=== PATIENT | male | born 1995 | race Caucasian/White ===

== ENCOUNTER 2019-12-01 14:44 | Emergency (ER) | payer MEDICAID, SELFPAY ==
--- NOTE | ~2019-12-01 | XR_ITS ---
EXAMINATION: XR ankle LT min 3V DATE: 12/01/2019 14:56 INDICATION: Left ankle pain TECHNIQUE: Anteroposterior, lateral, mortise, and additional oblique view of the ankle were obtained. COMPARISON: None. FINDINGS: There is no fracture, dislocation, or subluxation. The bones, soft tissues, and joint space s are normal. IMPRESSION: 1. No acute osseous abnormality. Reviewed, dictated and finalized at location A.
[2019-12-01 14:46] VITALS: RESP 16
[2019-12-01 14:57] VITALS: BP 127/86; PULSE 89; RESP 18; O2SAT 98
--- NOTE | 2019-12-01 16:04 | ED.LOWEXIN ---
HPI - Extremity Injury (Lower) General Chief Complaint: Extremity Injury, Lower Stated Complaint: left ankle injury Time Seen by Provider: 12/01/19 15:43 Source: patient Mode of arrival: ambulatory Limitations: no limitations History of Present Illness HPI Narrative: This is a 24 year old male that presents to the ER for left ankle injury today. 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 Reports since he has had pain on the lateral side of the ankle. Pain is worse with weightbearing and relieved with rest. Denies decreased range of motion or numbness. Related Data Home Medications Medication Instructions Recorded Confirmed No Home Medications 12/01/19 12/01/19 Allergies Allergy/AdvReac Type Severity Reaction Status Date / Time No Known Allergies Allergy Verified 12/01/19 14:45 Review of Systems Review of Systems: Narrative: CONSTITUTIONAL: Denies fever MUSCULOSKELETAL: Reports joint pain, and myalgia. NEUROLOGIC: Denies numbness All systems reviewed & are unremarkable except as noted in HPI and below PMFSH Past Medical History Medical History (Updated 12/01/19 @ 16:08 by Josee Guzman PA-C) No active medical problems Social History Social History (Updated 12/01/19 @ 16:06 by Josee Guzman PA-C) Substance use: never Gender identity (if verbalized by the patient): Male Exam Narrative: Exam Narrative: GENERAL: Well-appearing, well-nourished, and in no acute distress. HEAD: Normocephalic, atraumatic. EYES: EOMI. EXTREMITIES: Normal range of motion. No edema or obvious deformity. Normal DP pulses. Normal sensation SKIN: Warm, dry, no rash. NEURO: No focal deficits. Alert and oriented x3. PSYCH: Normal mood and affect Course Vital Signs Vital signs: Vital Signs Respiratory Rate 16 12/01/19 14:46 Pulse Rate 89 12/01/19 14:57 Respiratory Rate 18 12/01/19 14:57 Blood Pressure 127/86 12/01/19 14:57 Pulse Oximetry 98 12/01/19 14:57 MDM - Extremity Injury (Lower) MDM Narrative Medical decision making narrative: Patient presents emergency department for left ankle pain after an injury today. Left ankle x-rays without acute findings. Patient instructed on care of ankle sprain. He is to follow-up with primary care doctor. He was given warnings to return to the ER Imaging Data Radiologist's impression: ITS Impressions Ankle X-Ray 12/01/19 15:13 IMPRESSION: 1. No acute osseous abnormality. Critical Care Time Critical Care Time Critical Care Time: No Discharge Plan Discharge Clinical Impression: Ankle sprain and strain Patient Disposition: Home, Self-Care Condition: Stable Instructions: Ankle Sprain (ED) Additional Instructions: Return to the emergency department if you experience fever, redness and swelling of your leg, or any other symptoms that are concerning to you Wear MARISELA wrap and use crutches. No weight on the affected leg until able to bear weight without pain. Ice and elevate extremity. Tylenol or ibuprofen as needed for pain Follow up with primary care doctor for further care. Prescriptions: No Action No Home Medications RF: 0 Follow-up/Referrals: Brandon Cordova MD [Physician] - 1 Week PHYSICIAN,CHUTE TAPPER [Primary Care Provider] - Stand Alone Forms: Work/School Release IP
[2019-12-01 16:28] VITALS: PULSE 86; RESP 17; O2SAT 98
== END 2019-12-01 16:28 | disposition home or self-care (01) ==
PROVIDERS: Emergency Provider Emergency Medicine
DX: S93.402A Sprain of unspecified ligament of left ankle, initial encounter (principal); X50.0XXA Overexertion from strenuous movement or load, initial encounter
CPT/HCPCS: 73610; 99283

== ENCOUNTER 2020-03-08 12:59 | Emergency (ER) | payer OTHER, SELFPAY ==
--- NOTE | 2020-03-08 13:03 | ED.GENADULT ---
HPI - General Adult General Chief complaint: Upper Respiratory Infection Stated complaint: cold sx Time Seen by Provider: 03/08/20 13:20 Source: patient Mode of arrival: ambulatory Limitations: no limitations History of Present Illness HPI narrative: 25-year-old male patient presents to the [facility] with complaints of cold symptoms that started 2 days ago. Patient states that he is actually from [place] and moved up here about 6 months ago. Patient states he has never had issues with allergies before until he moved up here. Patient states he has had a lot of nasal congestion, runny nose and a cough. Denies any fevers, body aches or chills. Denies any ear pain or sore throat. Denies any chest pain or shortness of breath. Denies any abdominal pain, nausea, vomiting or diarrhea. Patient states he has taken Tylenol couple of times for his symptoms but denies any other medications for his symptoms. Patient states he is an active cigarette smoker. Related Data Allergies Allergy/AdvReac Type Severity Reaction Status Date / Time No Known Allergies Allergy Verified 03/08/20 13:26 Review of Systems Review of Systems: Narrative: CONSTITUTIONAL: Denies fever, chills, or sweats. EYES: Denies visual changes, redness, or discharge. ENT: Positive rhinorrhea, congestion, denies sore throat, or otalgia. CARDIOVASCULAR: Denies chest pain, palpitations, or edema. RESPIRATORY: Positive cough, denies dyspnea. GASTROINTESTINAL: Denies abdominal pain, nausea, vomiting, or diarrhea. GENITOURINARY: Denies dysuria or hematuria. SKIN: Denies rash or itching. MUSCULOSKELETAL: Denies back pain, joint pain, or myalgia. NEUROLOGIC: Denies headache, numbness, or weakness. PSYCHIATRIC: Denies anxiety or depression. [facility] Past Medical History Medical History No active medical problems Social History Social History (Updated 03/08/20 @ 13:30 by GUANAKITO Douglas) Smoking status: Current every day smoker Substance use: never Gender identity (if verbalized by the patient): Male Comments At the time of my signature I agree with nursing past medical history, surgical, social, and family history. There is no relevant family history pertinent to the presenting complaint. Exam Narrative: Exam Narrative: GENERAL: Well-appearing, well-nourished, and in no acute distress. HEAD: Normocephalic, atraumatic. EYES: PERRLA and EOMI. ENT: Nares with erythema and edema noted bilaterally, no rhinorrhea or epistaxis. Mucous membranes moist. Posterior pharynx with no erythema, tonsillectomy, exudates or lesions present. Bilateral TMs are clear with no erythema or foreign bodies to the canal. NECK: Supple. No lymphadenopathy CHEST: Clear to auscultation. No respiratory distress. Patient able talk clear complete sentences. HEART: Regular rate and rhythm. No murmur heard. Normal peripheral pulses. ABDOMEN: Soft, nontender, nondistended, normal active bowel sounds. EXTREMITIES: Normal range of motion. No edema. SKIN: Warm, dry, no rash. NEURO: No focal deficits. Alert and oriented x3. Course Vital Signs Vital signs: Vital Signs Temperature 37.1 C 03/08/20 13:15 Pulse Rate 78 03/08/20 13:15 Respiratory Rate 16 03/08/20 13:15 Blood Pressure 128/56 L 03/08/20 13:15 Pulse Oximetry 99 03/08/20 13:15 Temperature 37.1 C 03/08/20 13:15 Pulse Rate 78 03/08/20 13:15 Respiratory Rate 16 03/08/20 13:15 Blood Pressure 128/56 L 03/08/20 13:15 Pulse Oximetry 99 03/08/20 13:15 Vital signs reviewed. Medical Decision Making Differential Diagnosis Differential Diagnosis: Differential diagnosis: Allergic rhinitis, chronic sinusitis, tonsillitis, acute sinusitis, infectious mononucleosis, seasonal influenza, pertussis, diphtheria, meningococcal disease, viral syndrome, viral bronchitis, RSV. Discussed with patient that I think his symptoms are most likely due to allergies and drain
[2020-03-08 13:15] VITALS: BP 128/56; PULSE 78; RESP 16; TEMP 37.1; O2SAT 99
== END 2020-03-08 13:36 | disposition home or self-care (01) ==
PROVIDERS: Emergency Provider Nurse Practitioner Family
DX: J00 Acute nasopharyngitis [common cold] (principal); J01.90 Acute sinusitis, unspecified; R05 Cough; J30.9 Allergic rhinitis, unspecified; F17.210 Nicotine dependence, cigarettes, uncomplicated
CPT/HCPCS: 99213; G0463

== ENCOUNTER 2020-07-04 08:10 | Emergency (ER) | payer OTHER, SELFPAY ==
--- NOTE | 2020-07-04 08:11 | ED.GENADULT ---
HPI - General Adult General Chief complaint: Upper Respiratory Infection Stated complaint: Runny Nose/Sore throat Time Seen by Provider: 07/04/20 08:11 Source: patient Mode of arrival: ambulatory Limitations: no limitations History of Present Illness HPI narrative: 25-year-old male patient presents to the [facility] with complaints of cold symptoms for the past 5 days. Patient denies any fevers, body aches or chills. Patient states he has had a little bit of congestion, runny nose, pressure to bilateral ears and a cough. Patient states it is a dry cough. Patient does admit to being a cigarette smoker. Patient denies any chest pain at this time but at times does have some shortness of breath. Patient denies any abdominal pain, nausea, vomiting or diarrhea. Patient denies being around anybody with Covid that he is aware of. Patient states he is not currently working at this time. Related Data Home Medications Medication Instructions Recorded Confirmed aripiprazole 1 mg PO DAILY 07/04/20 07/04/20 buspirone 1 mg PO TID 07/04/20 07/04/20 Allergies Allergy/AdvReac Type Severity Reaction Status Date / Time No Known Allergies Allergy Verified 07/04/20 08:32 Review of Systems Review of Systems: Narrative: CONSTITUTIONAL: Denies fever, chills, or sweats. EYES: Denies visual changes, redness, or discharge. ENT: Positive rhinorrhea, congestion, denies sore throat, positive bilateral otalgia. CARDIOVASCULAR: Denies chest pain, palpitations, or edema. RESPIRATORY: Positive cough with intermittent dyspnea. GASTROINTESTINAL: Denies abdominal pain, nausea, vomiting, or diarrhea. GENITOURINARY: Denies dysuria or hematuria. SKIN: Denies rash or itching. MUSCULOSKELETAL: Denies back pain, joint pain, or myalgia. NEUROLOGIC: Denies headache, numbness, or weakness. PSYCHIATRIC: Denies anxiety or depression. [facility] Past Medical History Medical History (Updated 07/04/20 @ 08:59 by GUANAKITO Douglas) No active medical problems Social History Social History Smoking status: Current every day smoker Substance use: never Gender identity (if verbalized by the patient): Male Comments At the time of my signature I agree with nursing past medical history, surgical, social, and family history. There is no relevant family history pertinent to the presenting complaint. Exam Narrative: Exam Narrative: GENERAL: Well-appearing, well-nourished, and in no acute distress. HEAD: Normocephalic, atraumatic. EYES: PERRLA and EOMI. ENT: Nares with erythema and edema noted bilaterally, no rhinorrhea or epistaxis. Mucous membranes moist. Posterior pharynx with no erythema, tonsillar Nathalia, exudates or lesions present. NECK: Supple. No lymphadenopathy CHEST: Clear to auscultation. No respiratory distress. Patient able talk clear complete sentences. No tripoding noted. HEART: Regular rate and rhythm. No murmur heard. Normal peripheral pulses. ABDOMEN: Soft, nontender, nondistended, normal active bowel sounds. EXTREMITIES: Normal range of motion. No edema. SKIN: Warm, dry, no rash. NEURO: No focal deficits. Alert and oriented x3. Course Reevaluation(s) Reevaluation #1: Reevaluated patient. Notified him that his rapid Covid test today is negative. Discussed with him we will go ahead and do a Covid PCR on him and sent to the lab which will take about 24 to 48 hours come back. Discussed with him that we will go ahead and discharge him home with an inhaler, oral antihistamines and Tessalon Perles to help with the cough. Discussed with patient if he develops worsening symptoms such as severe shortness of breath or chest pain I advised him go the ER for further evaluation. Patient verbalized understanding of this denies any other questions or concerns at this time. Date: 07/04/20 Time: 09:02 Vital Signs Vital signs: Vital Signs Temperature 36.1 C L 07/04/20 08:42 Pulse Rate 71
[2020-07-04 08:42] VITALS: BP 142/75; PULSE 71; RESP 16; TEMP 36.1; O2SAT 98
[2020-07-04 08:51] VITALS: BP 142/75; PULSE 71; RESP 16; TEMP 36.1; O2SAT 98
[2020-07-05 23:00] LABS: SARS-CoV-2 RNA PCR Negative
== END 2020-07-04 09:04 | disposition home or self-care (01) ==
PROVIDERS: Emergency Provider Nurse Practitioner Family
DX: J06.9 Acute upper respiratory infection, unspecified (principal); R05 Cough; Z20.822 Contact with and (suspected) exposure to COVID-19; F17.210 Nicotine dependence, cigarettes, uncomplicated
CPT/HCPCS: 87426; 99213; C9803; G0463; U0003; U0005

== ENCOUNTER 2020-11-29 11:54 | Outpatient (CLI) | payer OTHER, SELFPAY ==
--- NOTE | ~2020-11-29 | XR_ITS ---
EXAMINATION: XR knee RT 3V DATE: 11/29/2020 12:20 INDICATION: Right knee pain. TECHNIQUE: 3 views of right knee were obtained. COMPARISON: None. FINDINGS: Bone alignment is normal. No fracture. Joint spaces are well maintained. There is no knee j oint effusion. IMPRESSION: 1. Normal right knee. Reviewed, dictated and finalized at location A. IMPRESSION: 1. Normal right knee.
--- NOTE | ~2020-11-29 | XR_ITS ---
EXAMINATION: XR knee LT 3V DATE: 11/29/2020 12:20 INDICATION: Left knee pain. TECHNIQUE: 3 views of left knee were obtained. COMPARISON: None. FINDINGS: Bone alignment is normal. No fracture. Joint spaces are well maintained. There is no knee j oint effusion. IMPRESSION: 1. Normal left knee. Reviewed, dictated and finalized at location A. IMPRESSION: 1. Normal left knee.
== END 2020-11-29 11:55 | disposition home or self-care (01) ==
LOC: ANHIMG 12:02
PROVIDERS: PCP Physician Assistant; Visit Provider Physician Assistant
DX: M25.561 Pain in right knee (principal)
CPT/HCPCS: 73562

== ENCOUNTER 2020-12-21 10:26 | Emergency (ER) | payer OTHER, SELFPAY ==
[2020-12-21 10:29] VITALS: BP 163/93; PULSE 87; RESP 20; TEMP 36.6; O2SAT 96
[2020-12-21 10:46] LABS: Basophils Absolute Auto 0.1 K/mm3 (0.0-0.1); Basophils Percent Auto 0.3 % (0.2-1.2); Eosinophils Percent Auto 0.1 % (0-4.4); Hematocrit 48.9 % (42.0-52.0); Hemoglobin 16.3 g/dL (14.0-18.0); Immature Granulocyte Absolute 0.07 K/mm3 (0.00-0.031); Immature Granulocyte Percent A 0.4 % (0-0.5); Lymphocytes Absolute Auto 2.17 K/mm3 (0.9-3.2); Lymphocytes Percent Auto 13.2 % (18.3-44.2); Mean Corpuscular HGB Conc 33.3 g/dl (32-36); Mean Corpuscular Hemoglobin 29.9 pg (26-34); Mean Corpuscular Volume 89.7 fl (80-100); Mean Platelet Volume 9.1 fl (7.4-10.4); Monocytes Absolute Auto 0.9 K/mm3 (0.1-0.6); Monocytes Percent Auto 5.6 % (2.6-8.5); Neutrophils Absolute Auto 13.2 K/mm3 (1.3-6.7); Neutrophils Percent Auto 80.4 % (45.5-73.1); Platelet Count Result 287 k/mm3 (150-375); Red Blood Count 5.45 M/mm3 (4.6-6.20); Red Cell Distribution Width 12.8 % (11.5-14.5); White Blood Count 16.4 K/mm3 (4.5-10.0)
[2020-12-21 10:55] LABS: Alanine Aminotransferase 31 U/L (4-50); Albumin Level 5.1 g/dL (3.5-5.1); Alkaline Phosphatase 85 U/L (38-126); Anion Gap 11 mmol/L (8-16); Aspartate Amino Transferase 47 U/L (17-59); Bilirubin,Total 0.7 mg/dL (0.2-1.3); Blood Urea Nitrogen 13 mg/dL (9-20); Calcium 10.2 mg/dL (8.4-10.2); Carbon Dioxide 25 mmol/L (22-30); Chloride 102 mmol/L (98-107); Estimated CRCL calculation 86 ml/min; Estimated Glomerular Filt Rate > 60; Ethanol < 10 mg/dL (<10); Glucose 170 mg/dL (65-110); Sodium 138 mmol/L (137-145)
[2020-12-21 11:13] VITALS: BP 140/85; PULSE 86; RESP 19; O2SAT 99
--- NOTE | 2020-12-21 11:13 | PC.NURSE ---
Assumed care of pt, pt is alert and upright on stretcher, c/o nausea. No other complaints at this time. Pt on tele monitor, VSS. Discussed POC. Bedside report received from Christina CHANEY.
[2020-12-21] MEDS: SODIUM CHLORIDE 0.9% IV 1,000 ML 999 ML IV CONT (11:37)
[2020-12-21] MEDS: ONDANSETRON INJ 4 MG/2 ML VIAL IV PUSH (11:37)
--- NOTE | 2020-12-21 11:37 | PC.NURSE ---
blood work (lipase) added on to labs previously drawn per Dr Juno olguin, called laboratory at this time
--- NOTE | 2020-12-21 11:41 | ED.GENADULT ---
HPI - General Adult General Chief complaint: Alcohol Stated complaint: alcohol withdrawals Time Seen by Provider: 12/21/20 11:20 Source: patient History of Present Illness HPI narrative: Patient is a 25 y/o male complaining of profuse sweating since yesterday. There is no known alleviating or exacerbating factor. He also feels nauseated and shaky. He denies any chest pain or abdominal pain. He believes that he is in alcohol withdrawal. He states that he usually drink one 12 pack daily. His last drink was last night. Related Data Home Medications Medication Instructions Recorded Confirmed aripiprazole 1 mg PO DAILY 07/04/20 07/04/20 buspirone 1 mg PO TID 07/04/20 07/04/20 Allergies Allergy/AdvReac Type Severity Reaction Status Date / Time No Known Allergies Allergy Verified 12/21/20 10:35 Review of Systems Review of Systems: All systems reviewed & are unremarkable except as noted in HPI and below Constitutional: Constitutional: Reports as per HPI, Denies chills, Reports excessive sweating, Denies fever(s), Denies headache(s) and Denies weakness Eyes: Eyes: Denies blurry vision ENT: Denies headache(s) and Denies neck pain Cardiovascular: Cardiovascular: Denies chest pain and Denies dyspnea Respiratory: Respiratory: Denies cough and Denies dyspnea Gastrointestinal: Gastrointestinal: Denies abdominal pain, Denies diarrhea, Reports nausea and Denies vomiting Genitourinary: Genitourinary: Denies hematuria and Denies dysuria Musculoskeletal: Musculoskeletal: Denies back pain and Denies neck pain Neurologic: Denies headache(s), Reports tremor(s) and Denies weakness [facility] Past Medical History Medical History (Updated 12/21/20 @ 13:55 by Christine Fraire MD) No active medical problems Social History Social History Smoking status: Current every day smoker Substance use: never Gender identity (if verbalized by the patient): Male Exam Const: General: no acute distress and well developed Orientation/consciousness: oriented to person, oriented to place, oriented to time and patient oriented x3 HENMT: Head: normocephalic Ears: external ears normal General nose exam: Normal external nose present Eyes: General: appearance normal, both eyes and all related structures Conjunctivae: conjunctivae normal Neck: Neck: normal visual inspection and full ROM Chest: Chest palpation & inspection: normal inspection of the chest and no tenderness Resp: Effort & Inspection: normal respiratory effort Auscultation: clear to auscultation bilaterally Cardio: Rate: regular rate Rhythm: regular rhythm GI: GI Palp: No abdominal tenderness and Yes Soft to palpation Skin: General skin exam: normal color and turgor normal Neuro: General: oriented to person, oriented to place, oriented to time and patient oriented x3 Cognition (Neuro): normal cognition Extrem: General: normal to inspection, full ROM and no pedal edema Psych: Appearance: grossly normal Mental Status: mental status grossly normal Affect: normal affect Course Vital Signs Vital signs: Vital Signs Temperature 36.6 C 12/21/20 10:29 Pulse Rate 87 12/21/20 10:29 Respiratory Rate 20 12/21/20 10:29 Blood Pressure 163/93 H 12/21/20 10:29 Pulse Oximetry 96 12/21/20 10:29 Temperature 36.6 C 12/21/20 10:29 Pulse Rate 72 12/21/20 14:09 Respiratory Rate 16 12/21/20 14:09 Blood Pressure 137/76 12/21/20 14:09 Pulse Oximetry 99 12/21/20 14:09 Medical Decision Making Vital Signs Vital Signs: Vital Signs Temperature 36.6 C 12/21/20 10:29 Pulse Rate 87 12/21/20 10:29 Respiratory Rate 20 12/21/20 10:29 Blood Pressure 163/93 H 12/21/20 10:29 Pulse Oximetry 96 12/21/20 10:29 Temperature 36.6 C 12/21/20 10:29 Pulse Rate 72 12/21/20 14:09 Respiratory Rate 16 12/21/20 14:09 Blood Pressure 137/76 12/21/20 14:09 Pulse Oximetry 99 07/2
--- NOTE | 2020-12-21 11:44 | ECG_ITS ---
Measurements Intervals [place] Rate: 86 P: 61 CO: 171 QRS: 48 QRSD: 102 T: 28 QT: 344 QTc: 413 Interpretive Statements SINUS RHYTHM POSSIBLE LEFT ATRIAL ENLARGEMENT INCOMPLETE RIGHT BUNDLE BRANCH BLOCK DELAYED PRECORDIAL R/S TRANSITION BORDERLINE ECG Electronically Signed On 12-21-2020 12:59:33 CDT by Manuel Calloway D.O.
[2020-12-21 11:46] LABS: Lipase 21 U/L (23-300)
[2020-12-21 11:55] LABS: Add Urine Microscopic? YES; Appearance Urine Clear (Clear); Bacteria Urine Trace /hpf; Bilirubin Urine Negative (Negative); Blood Urine Negative (Negative); Color Urine Amber (Yellow); Glucose Urine UA Negative (Negative); Ketones Urine Trace mg/dL (Negative); Leukocyte Esterase Ur Negative LEU/UL (Negative); Mucus Urine Heavy /lpf; Nitrate Urine Negative (Negative); Protein Urine 1+ mg/dL (Negative); RBC Urine 0-2 /hpf (0-2); Specific Grav Ur 1.029 (1.001-1.035); WBC Urine 0-3 /hpf
[2020-12-21 12:07] LABS: Troponin I < 0.012 ng/mL (0.000-0.034)
[2020-12-21 12:10] VITALS: BP 142/82; PULSE 86; RESP 20; O2SAT 95
[2020-12-21] MEDS: chlordiazePOXIDE (*CRX) 25 MG CAPSULE PO (12:16)
[2020-12-21 12:56] VITALS: BP 123/60; PULSE 90; RESP 18; O2SAT 99
[2020-12-21 14:09] VITALS: BP 137/76; PULSE 72; RESP 16; O2SAT 99
== END 2020-12-21 14:10 | disposition home or self-care (01) ==
PROVIDERS: Emergency Medicine; Emergency Provider Emergency Medicine; PCP Physician Assistant
DX: F10.239 Alcohol dependence with withdrawal, unspecified (principal); Y90.0 Blood alcohol level of less than 20 mg/100 ml; F17.200 Nicotine dependence, unspecified, uncomplicated; I45.10 Unspecified right bundle-branch block; R94.31 Abnormal electrocardiogram [ECG] [EKG]
CPT/HCPCS: 36415; 80053; 80307; 81001; 83690; 84484; 85025; 93005; 96361; 96374; 99284; A9270; J2405; J7030

== ENCOUNTER 2021-03-27 13:29 | Emergency (ER) | payer OTHER, SELFPAY ==
--- NOTE | ~2021-03-27 | CT_ITS ---
EXAMINATION: CT abdomen pelvis w con DATE: 03/27/2021 16:35 INDICATION: Epigastric abdominal pain, nausea and vomiting TECHNIQUE: Computed tomography (CT) of the abdomen and pelvis was performed with 100 cc Omnipaque 350 intravenous contrast. Automated exposure control and iterative reconstruction technique were employe d. Exam dose: 276.44 mGy-cm total exam DLP. COMPARISON: None. FINDINGS: The lung bases are clear. Normal heart size. No pericardial or pleural effusion. The liver, gallbladder, bile ducts, spleen, pancreas, pancreatic duct, and adrenal glands and kidneys are unremarkable with the exception of a 7 mm right renal cyst. Normal appendix. No bowel obstruction, bowel wall thickening, pneumatosis or intraperitoneal free air . Normal caliber of the abdominal aorta. No intraperitoneal or retroperitoneal or pelvic mass lesion or adenopathy or ascites. Included skeletal structures are unremarkable. IMPRESSION: No significant abnormality Reviewed, dictated and finalized at Location [facility]. Reviewed, dictated and finalized at location A. IMPRESSION: No significant abnormality
[2021-03-27 13:40] VITALS: BP 134/80; PULSE 81; RESP 18; TEMP 36.7; O2SAT 98
--- NOTE | 2021-03-27 13:48 | ED.NAVMDI ---
HPI - Nausea/Vomiting/Diarrhea General Chief complaint: Nausea/Vomiting/Diarrhea Stated complaint: throwing up blood today Time Seen by Provider: 03/27/21 13:38 Source: patient Mode of arrival: ambulatory Limitations: no limitations History of Present Illness HPI Narrative: Patient is a 26-year-old male complaining of nausea and vomiting after drinking 1 bottle of whiskey last night all the way up to 4 AM. Patient states that he noticed some blood in his vomitus early this morning but none since. Patient also states that he has been having epigastric discomfort due to his vomiting. Patient denies any chest pain, shortness of breath, diarrhea, fever or chills Related Data Home Medications Medication Instructions Recorded Confirmed aripiprazole 1 mg PO DAILY 07/04/20 07/04/20 buspirone 1 mg PO TID 07/04/20 07/04/20 Allergies Allergy/AdvReac Type Severity Reaction Status Date / Time No Known Allergies Allergy Verified 12/21/20 10:35 Review of Systems Review of Systems: All systems reviewed & are unremarkable except as noted in HPI and below Constitutional: Constitutional: Denies body ache(s), Denies chills, Denies excessive sweating, Denies fatigue, Denies fever(s), Denies headache(s), Denies lethargy, Denies malaise, Denies weakness and Denies weight loss Eyes: Eyes: Denies blurry vision, Denies change in vision and Denies loss of vision ENT: Denies dizziness, Denies ear discharge, Denies headache(s), Denies lip swelling, Denies epistaxis, Denies nasal congestion, Denies neck pain, Denies throat swelling and Denies tongue swelling Cardiovascular: Cardiovascular: Denies chest pain, Denies chest pain at rest, Denies chest pain with activity, Denies diaphoresis, Denies rapid heart rate, Denies edema, Denies irregular heart rhythm, Denies lightheadedness, Denies palpitations, Denies dyspnea and Denies dyspnea on exertion Respiratory: Respiratory: Denies chest congestion, Denies cough, Denies hemoptysis, Denies dyspnea and Denies dyspnea on exertion Gastrointestinal: Gastrointestinal: Denies melena, Denies hematochezia, Denies diarrhea and Denies hematemesis Musculoskeletal: Musculoskeletal: Denies abnormal gait, Denies deformity, Denies joint swelling, Denies limited range of motion, Denies neck pain and Denies numbness Neurologic: Denies Abnormal speech present, Denies abnormal gait, Denies confusion, Denies dizziness, Denies headache(s), Denies focal weakness, Denies loss of vision, Denies numbness, Denies Other visual disturbances, Denies Sensory deficit (Neuro) and Denies weakness Psychiatric: Psychiatric: Denies confusion, Denies depression, Denies auditory hallucinations, Denies homicidal ideation and Denies suicidal ideation Endocrine: Endocrine: Denies cold intolerance, Denies excessive sweating, Denies fatigue, Denies heat intolerance and Denies palpitations Hematologic/Lymphatic: Hematologic/Lymphatic: Denies easy bleeding and Denies easy bruising Allergic/Immunologic: Allergic/Immunologic: Denies lip swelling, Denies throat swelling and Denies tongue swelling PMFSH Past Medical History Medical History (Updated 03/27/21 @ 17:49 by Kota Varghese MD) No active medical problems Social History Social History Smoking status: Current every day smoker Substance use: never Gender identity (if verbalized by the patient): Male Exam Const: General: cooperative, healthy appearing, comfortable, no acute distress, well developed, alert and awake; No confusion Orientation/consciousness: oriented to person, oriented to place, oriented to time, patient oriented x3 and No confusion Limitations: no limitations HENMT: Head: normal to inspection, normocephalic and atraumatic Ears: hearing grossly normal bilaterally, TM normal on the right and TM normal on the left General nose exam: Normal external nose present, Normal nares present and No nasal discharge p
[2021-03-27] MEDS: ONDANSETRON INJ 4 MG/2 ML VIAL IV PUSH (13:59)
[2021-03-27] MEDS: SODIUM CHLORIDE 0.9% IV 1,000 ML 999 ML IV CONT (13:59)
[2021-03-27] MEDS: PANTOPRAZOLE SODIUM IV 40 MG VIAL IV PUSH ×2 (13:59→17:20)
[2021-03-27 14:04] LABS: Basophils Absolute Auto 0.1 K/mm3 (0.0-0.1); Basophils Percent Auto 0.5 % (0.2-1.2); Eosinophils Absolute Auto 0.1 K/mm3 (0-0.3); Eosinophils Percent Auto 0.4 % (0-4.4); Hematocrit 51.8 % (42.0-52.0); Hemoglobin 17.7 g/dL (14.0-18.0); Immature Granulocyte Absolute 0.12 K/mm3 (0.00-0.031); Immature Granulocyte Percent A 0.5 % (0-0.5); Lymphocytes Absolute Auto 3.88 K/mm3 (0.9-3.2); Lymphocytes Percent Auto 17.5 % (18.3-44.2); Mean Corpuscular HGB Conc 34.2 g/dl (32-36); Mean Corpuscular Hemoglobin 30.8 pg (26-34); Mean Corpuscular Volume 90.2 fl (80-100); Mean Platelet Volume 9.1 fl (7.4-10.4); Monocytes Absolute Auto 1.5 K/mm3 (0.1-0.6); Monocytes Percent Auto 6.7 % (2.6-8.5); Neutrophils Absolute Auto 16.5 K/mm3 (1.3-6.7); Neutrophils Percent Auto 74.4 % (45.5-73.1); Platelet Count Result 338 k/mm3 (150-375); Red Blood Count 5.74 M/mm3 (4.6-6.20); Red Cell Distribution Width 12.5 % (11.5-14.5); White Blood Count 22.2 K/mm3 (4.5-10.0)
[2021-03-27 14:09] LABS: Alanine Aminotransferase 28 U/L (4-50); Albumin Level 5.2 g/dL (3.5-5.1); Alkaline Phosphatase 71 U/L (38-126); Anion Gap 16 mmol/L (8-16); Aspartate Amino Transferase 37 U/L (17-59); Bilirubin,Total 0.6 mg/dL (0.2-1.3); Blood Urea Nitrogen 6 mg/dL (9-20); Calcium 9.8 mg/dL (8.4-10.2); Carbon Dioxide 22 mmol/L (22-30); Chloride 105 mmol/L (98-107); Estimated CRCL calculation 100 ml/min; Estimated Glomerular Filt Rate > 60; Glucose 105 mg/dL (65-110); Lipase 31 U/L (23-300); Sodium 143 mmol/L (137-145)
[2021-03-27 14:50] VITALS: BP 143/84; PULSE 71; RESP 18; O2SAT 97
[2021-03-27 15:16] LABS: Add Urine Microscopic? YES; Appearance Urine Clear (Clear); Bilirubin Urine 1+ (Negative); Blood Urine Negative (Negative); Color Urine Yellow (Yellow); Glucose Urine UA Negative (Negative); Ketones Urine Trace mg/dL (Negative); Leukocyte Esterase Ur Negative LEU/UL (Negative); Nitrate Urine Negative (Negative); Protein Urine 1+ mg/dL (Negative); Specific Grav Ur >= 1.030 (1.001-1.035); Urobilinogen Urine 0.2 mg/dL (<2.0)
[2021-03-27 15:38] LABS: RBC Urine 0-2 /hpf (0-2)
[2021-03-27 15:39] LABS: Bacteria Urine Trace /hpf; Squamous Epithelial Cell Urine Few /hpf (Few); WBC Urine 0-3 /hpf (0-3)
[2021-03-27 15:40] LABS: Mucus Urine Few /lpf
[2021-03-27 17:59] VITALS: BP 130/86; PULSE 68; RESP 18; O2SAT 99
== END 2021-03-27 18:00 | disposition home or self-care (01) ==
PROVIDERS: Emergency Provider Emergency Medicine
DX: K29.21 Alcoholic gastritis with bleeding (principal); F17.200 Nicotine dependence, unspecified, uncomplicated
CPT/HCPCS: 36415; 74177; 80053; 81001; 83690; 85025; 96361; 96374; 96375; 96376; 99284; C9113; J2405; J7030; Q9967

== ENCOUNTER 2022-08-02 12:39 | Emergency (ER) | payer OTHER, SELFPAY ==
[2022-08-02 12:53] VITALS: BP 119/79; PULSE 97; RESP 16; TEMP 35.8; O2SAT 100
[2022-08-02 12:54] VITALS: BP 119/79; PULSE 97; RESP 16; TEMP 35.8; O2SAT 100
--- NOTE | 2022-08-02 12:58 | ED.URI ---
HPI - URI/Sore Throat General Chief Complaint: Upper Respiratory Infection Stated Complaint: COUGH/EARACHE/STUFFY NOSE/CONGESITON Time Seen by Provider: 08/02/22 13:03 Source: patient and RN notes reviewed Mode of arrival: ambulatory Limitations: no limitations History of Present Illness HPI Narrative: 27-year-old male with history of asthma presents with concern for 3 day history of cough, earache, runny nose, stuffy nose, nasal congestion, cough, increased use of his albuterol inhaler. Reports he is using his inhaler 4-5 times daily. He reports chills and sweats. Reports his consistent your symptoms MD elicited complaint: cough, rhinorrhea and nasal congestion Related Data Home Medications Medication Instructions Recorded Confirmed albuterol sulfate 90 mcg/actuation 2 inh inhalation DIRECTED 08/02/22 08/02/22 aerosol inhaler Allergies Allergy/AdvReac Type Severity Reaction Status Date / Time No Known Allergies Allergy Verified 08/02/22 12:50 Review of Systems Review of Systems: CONSTITUTIONAL: Reports malaise, chills, sweats EYES: Denies visual changes, redness, or discharge. ENT: Reports rhinorrhea, congestion, otalgia. Denies sinus pain and sore throat. CARDIOVASCULAR: Denies chest pain, palpitations, or edema. RESPIRATORY: Reports cough, situational dyspnea. GASTROINTESTINAL: Denies abdominal pain, nausea, vomiting, diarrhea SKIN: Denies rash or itching. MUSCULOSKELETAL: Reports myalgia. NEUROLOGIC: Denies headache. All systems reviewed & are unremarkable except as noted in HPI and below PMFSH Past Medical History Medical History (Updated 08/02/22 @ 13:32 by Delia Arndt NP) No active medical problems Social History Social History Smoking status: Current every day smoker Substance use: never Gender identity (if verbalized by the patient): Male Comments At time of signature, agree with nursing past medical, surgical, social and family history. There is no relevant family history pertinent to the presenting complaint Exam Narrative: GENERAL: Well-appearing, well-nourished, and in no acute distress. HEAD: Normocephalic EYES: PERRLA, conjunctivae clear ENT: Nares clear, turbinates edematous and erythematous, clear discharge. Mucous membranes moist. TM pearly spence with dull light reflex bilaterally; no tragal tenderness. Oropharynx erythematous without lesions. Tonsils enlarged and without exudate, no drooling, no hoarseness, no trismus, uvula midline. NECK: Supple. No lymphadenopathy CHEST: Clear to auscultation, breath sounds equal. No wheezing, rhonchi, rales, or stridor. No respiratory distress, speaks in full sentences. HEART: Regular rate and rhythm. No murmur heard. SKIN: Warm, dry, no rash. NEURO: Alert and oriented x3. PSYCH: Normal mood and affect Course Course Emergency Course: Patient is aware of diagnosis, understands and agrees to treatment plan. Anticipatory guidance given. Patient agrees to follow-up as directed and is aware of reasons to seek care at the emergency department. Portions of this record may have been created with voice recognition software Level of Care: Express Care Visit Vital Signs Vital signs: Vital Signs Temperature 96.5 F L 08/02/22 12:53 Pulse Rate 97 08/02/22 12:53 Respiratory Rate 16 08/02/22 12:53 Blood Pressure 119/79 08/02/22 12:53 Pulse Oximetry 100 08/02/22 12:53 Temperature 96.5 F L 08/02/22 12:54 Pulse Rate 97 08/02/22 12:54 Respiratory Rate 16 08/02/22 12:54 Blood Pressure 119/79 08/02/22 12:54 Pulse Oximetry 100 08/02/22 12:54 Reviewed. MDM - URI/Sore Throat MDM Narrative Medical decision making narrative: Differential diagnosis considered: [place] virus, strep pharyngitis, allergic rhinitis, upper respiratory tract infection, sinusitis, rhinosinusitis, nasopharyngitis. viral pharyngitis, otitis media, otitis externa, pneumonia, bro
== END 2022-08-02 13:36 | disposition home or self-care (01) ==
PROVIDERS: Emergency Provider Nurse Practitioner; PCP Nurse Practitioner Adult Health
DX: J06.9 Acute upper respiratory infection, unspecified (principal); F17.200 Nicotine dependence, unspecified, uncomplicated; J45.909 Unspecified asthma, uncomplicated; Z20.822 Contact with and (suspected) exposure to COVID-19
CPT/HCPCS: 87081; 87426; 87804; 87880; 99213; C9803; G0463